=== PATIENT | male | born 1960 | race Caucasian/White ===

== ENCOUNTER 2018-05-31 00:46 | Outpatient (CLI) | payer MEDICARE, SELFPAY ==
--- NOTE | 2018-05-31 09:37 | DI.RAD_ITS ---
SYMPTOMS/DIAGNOSIS: LOW BACK PAIN, M54.5 LUMBAR SPINE: AP, lateral and bilateral oblique views. There is a mild left convex curvature of the thoracolumbar spine. The apex is at L1. There are five lumbar-type vertebral bodies. No spondylolysis or spondylolisthesis is seen. No acute fractures or subluxations are present. Disc heights are well maintained. There are endplate osteophytes seen in the lumbar spine, particularly at the L1- L2 level and L3-L4 through L5-S1. Degenerative changes of the facets are present from L3-4 through L5-S1. The bones are normally mineralized. IMPRESSION: Mild to moderate degenerative changes of the lumbar spine.
== END 2018-05-31 01:06 ==
PROVIDERS: PCP Family Medicine; Visit Provider Family Medicine
DX: M54.5 Low back pain (principal); M47.817 Spondylosis without myelopathy or radiculopathy, lumbosacral region
CPT/HCPCS: 72110

== ENCOUNTER 2018-09-17 16:39 | Emergency (ER) | payer MEDICARE, SELFPAY ==
[2018-09-17 16:54] VITALS: BP 126/65; PULSE 79; RESP 15; TEMP 36.8; O2SAT 95
--- NOTE | 2018-09-17 17:24 | DI.COMBO_ITS ---
SYMPTOM/DIAGNOSIS: TRAUMA, PAIN NONCONTRAST HEAD CT: Mild cerebral atrophy is demonstrated. There is no evidence of an intracerebral mass, fluid collection, edema or a territorial infarct. Ventricular prominence is noted and is consistent with mild diffuse cerebral atrophy. There is no skull fracture. Minimal partial right ethmoid sinusitis is demonstrated. There is no evidence of mastoiditis. Note is made of posterior scalp soft tissue swelling. SUMMARY: No acute intracranial abnormality is demonstrated. There is a region of soft tissue swelling over the posterior scalp with no evidence of a fracture. CERVICAL SPINE CT: The examination was carried out according to the usual protocol. There are degenerative changes involving the cervical spine which are of moderately severe degree. There is nothing to suggest a fracture, subluxation or dislocation. The neural canal is widely patent throughout. The odontoid is intact and is closely applied to the anterior arch of C 1. SUMMARY: DJD. No evidence of an acute fracture or dislocation or subluxation. LEFT CLAVICLE: There is no evidence of a clavicular fracture. Degenerative changes involving the AC joint are noted. There is no evidence of an AC separation.
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
--- NOTE | 2018-09-17 18:16 | DI.VRAD_ITS ---
EXAM: XR Left Clavicle Complete, 2 or More Views EXAM DATE/TIME: 09/17/2018 5:45 PM CLINICAL HISTORY: 57 years old, male; left shoulder pain TECHNIQUE: XR Left clavicle complete 2 or more views. COMPARISON: No relevant prior studies available. FINDINGS: Bones/joints: No acute fracture. No dislocation. No AC separation. Left AC joint degenerative change. Soft tissues: No soft tissue radiopaque foreign body or soft tissue calcification. IMPRESSION: 1. No acute fracture. 2. Left AC joint degenerative change. Dictated and Authenticated by: Lazaro He MD. Ordering:NU Ruiz MD
[2018-09-17] MEDS: Acetaminophen 500 MG TAB 1500 MG PO (18:47)
== END 2018-09-17 18:52 | disposition home or self-care (01) ==
PROVIDERS: Emergency Provider Physician Assistant; PCP Family Medicine
DX: S00.01XA Abrasion of scalp, initial encounter (principal); M54.2 Cervicalgia; M25.512 Pain in left shoulder; I10 Essential (primary) hypertension; E11.9 Type 2 diabetes mellitus without complications; Z79.4 Long term (current) use of insulin
CPT/HCPCS: 99284; 70450; 72125; 73000; L0120; L0172

== ENCOUNTER 2019-01-21 12:57 | Outpatient (REF) | payer MEDICARE, SELFPAY ==
[2019-01-21 19:15] LABS: Anion Gap 7.8 mmol/L (3-11); BUN 18 mg/dL (7-18); CO2 29.2 mmol/L (21.0-32.0); CREATININE 0.83 mg/dL (0.70-1.30); Chloride 101 mmol/L (98-107); Glucose 127 mg/dL (70-100); Potassium 4.3 mmol/L (3.5-5.1); Sodium 138 mmol/L (136-145)
[2019-01-23 09:58] LABS: Hepatitis C Ab w Rflx HCV PCR Negative (NEGAT)
== END 2019-01-21 13:17 ==
LOC: LBN 12:57
PROVIDERS: PCP Family Medicine; Visit Provider Family Medicine
DX: E11.9 Type 2 diabetes mellitus without complications (principal); Z11.59 Encounter for screening for other viral diseases
CPT/HCPCS: 80048; 86803

== ENCOUNTER 2020-02-03 11:14 | Outpatient (REF) | payer MEDICARE, SELFPAY ==
--- NOTE | 2020-02-03 13:45 | SKI_PTH ---
PATIENT: Jose Mcfadden III LOC: [facility] U#:[id number] AGE/SX: 59/M ROOM: RE02/03/[address]: Rod Geiger : 1960 BED: DIS: 02/03/2020 SPEC #: [id number] RECD: 02/04/20 11:58 STATUS: JAIDEN JEAN-BAPTISTE #: [id number] DEX: 02/03/20 13:[address]: Rod Geiger DEPT: Surgical Specimen RECD BY: Kita Sylvester Tissues: 1 - SKIN BIOPSY(SHAVE/PUNCH) Procedures: SKIN LEVEL 4 Comments: [id number]
== END 2020-02-03 11:34 ==
LOC: NCHCN 11:14
PROVIDERS: PCP Family Medicine; Visit Provider Family Medicine
DX: C44.622 Squamous cell carcinoma of skin of right upper limb, including shoulder (principal)
CPT/HCPCS: 88305

== ENCOUNTER 2020-07-26 15:01 | Outpatient (REF) | payer MEDICARE, SELFPAY ==
[2020-07-26 19:32] LABS: HCT 32.8 % (40.0-50.0); HGB 10.5 g/dL (13.5-17.5); MCH 27.6 pg (27.0-33.0); MCV 86.1 fL (80-95); MPV 11.5 fL (8.0-11.0); Platelet Count 222 10^3/uL (130-400); RBC 3.81 10^6/uL (4.36-5.78); RDW 14.8 % (11.8-14.1); WBC 7.95 10^3/uL (4.4-10.8)
[2020-07-26 19:45] LABS: Iron 54 ug/dL (65-175); Total Iron Binding Capacity 360 ug/dL (250-450); Transferrin Sat 15 % (20-55)
[2020-07-26 20:17] LABS: ALT 31 U/L (16-63); AST 30 U/L (15-37); Albumin 3.6 g/dL (3.4-5.0); Alkaline Phosphatase 52 U/L (46-116); Anion Gap 6.7 mmol/L (3-11); BUN 11 mg/dL (7-18); Bilirubin, Total 0.7 mg/dL (0.2-1.0); CO2 29.3 mmol/L (21.0-32.0); CREATININE 0.96 mg/dL (0.70-1.30); Calcium 9.2 mg/dL (8.5-10.1); Chloride 102 mmol/L (98-107); Glucose 153 mg/dL (74-106); Potassium 4.2 mmol/L (3.5-5.1); Sodium 138 mmol/L (136-145); Total Protein 6.6 g/dL (6.4-8.2); Vitamin B12 631 pg/mL (193-986)
== END 2020-07-26 15:21 ==
LOC: NCHCN 15:01
PROVIDERS: PCP Family Medicine; Visit Provider Family Medicine
DX: D64.9 Anemia, unspecified (principal); E11.9 Type 2 diabetes mellitus without complications; E66.9 Obesity, unspecified
CPT/HCPCS: 80053; 85027; 82607; 83540; 83550

== ENCOUNTER 2020-09-28 22:57 | Outpatient (REF) | payer OTHER, SELFPAY ==
[2020-09-28 22:05] LABS: Hemoglobin A1C 7.8 % (<5.7)
[2020-09-28 22:20] LABS: Anion Gap 9.6 mmol/L (3-11); BUN 11 mg/dL (7-18); CO2 28.4 mmol/L (21.0-32.0); Chloride 100 mmol/L (98-107); Glucose 156 mg/dL (74-106); Potassium 4.4 mmol/L (3.5-5.1); Sodium 138 mmol/L (136-145); TSH (W/Ref FT4) 0.77 uIU/mL (0.36-3.74)
== END 2020-09-28 22:58 | disposition home or self-care (01) ==
LOC: NCHCN 22:57
PROVIDERS: PCP Family Medicine; Visit Provider Family Medicine
DX: E11.65 Type 2 diabetes mellitus with hyperglycemia (principal); Z68.41 Body mass index [BMI] 40.0-44.9, adult
CPT/HCPCS: 80048; 83036; 84443

== ENCOUNTER 2021-04-06 20:33 | Outpatient (REF) | payer OTHER, SELFPAY ==
[2021-04-06 20:29] LABS: HCT 33.1 % (40.0-50.0); HGB 10.2 g/dL (13.5-17.5); MCH 27.6 pg (27.0-33.0); MCHC 30.8 % (32.0-36.0); MCV 89.5 fL (80-95); MPV 11.2 fL (8.0-11.0); Platelet Count 217 10^3/uL (130-400); RDW 14.9 % (11.8-14.1); RDW-SD 48.4 fL; WBC 7.41 10^3/uL (4.4-10.8)
[2021-04-06 20:46] LABS: Hemoglobin A1C 7.6 % (<5.7)
[2021-04-06 20:56] LABS: Anion Gap 9.5 mmol/L (3-11); BUN 15 mg/dL (7-18); CO2 28.5 mmol/L (21.0-32.0); CREATININE 0.8 mg/dL (0.70-1.30); Calcium 9.3 mg/dL (8.5-10.1); Calculated LDL 86 mg/dL (<100); Chloride 104 mmol/L (98-107); Cholesterol 162 mg/dL (<200); Glucose 110 mg/dL (74-106); HDL Cholesterol 33 mg/dL (40-60); Potassium 4.4 mmol/L (3.5-5.1); Sodium 142 mmol/L (136-145); Triglyceride 216 mg/dL (<150)
[2021-04-06 20:57] LABS: Iron 72 ug/dL (65-175); Total Iron Binding Capacity 368 ug/dL (250-450); Transferrin Sat 20 % (20-55)
== END 2021-04-06 20:34 | disposition home or self-care (01) ==
LOC: NCHCN 20:33
PROVIDERS: PCP Family Medicine; Visit Provider Family Medicine
DX: E11.9 Type 2 diabetes mellitus without complications (principal); D64.9 Anemia, unspecified
CPT/HCPCS: 80048; 80061; 85027; 83036; 83540; 83550

== ENCOUNTER 2021-09-07 19:48 | Outpatient (REF) | payer OTHER, SELFPAY ==
[2021-09-07 19:19] LABS: HCT 29.7 % (40.0-50.0); MCH 27.3 pg (27.0-33.0); MCHC 30.3 % (32.0-36.0); Platelet Count 196 10^3/uL (130-400); RDW 14.3 % (11.8-14.1); RDW-SD 46.9 fL; Reticulocyte 1.1 % (0.5-2.4); WBC 6.77 10^3/uL (4.4-10.8)
[2021-09-07 20:00] LABS: Hemoglobin A1C 7.6 % (<5.7)
== END 2021-09-07 19:49 | disposition home or self-care (01) ==
LOC: LBN 19:48
PROVIDERS: PCP Family Medicine; Visit Provider Family Medicine
DX: E11.9 Type 2 diabetes mellitus without complications (principal); D64.9 Anemia, unspecified
CPT/HCPCS: 85027; 83036; 85045

== ENCOUNTER 2022-02-09 03:48 | Outpatient (CLI) | payer MEDICARE, SELFPAY ==
[2022-02-09 11:18] LABS: Abs Immature Grans 0.05 10^3/uL (0.0-0.06); Absolute Basophil Count 0.04 10^3/uL (0.0-0.2); Absolute Eosinophil Count 0.15 10^3/uL (0.0-0.7); Absolute Lymphocyte Count 2.46 10^3/uL (1.2-3.4); Absolute Monocyte Count 0.56 10^3/uL (0.1-0.8); Absolute Neutrophil Count 3.43 10^3/uL (1.2-6.7); Basophils % 0.6; Eosinophils % 2.2; HCT 31.7 % (40.0-50.0); Immature Grans % 0.7; Lymphocytes % 36.8; MCH 26.7 pg (27.0-33.0); MCHC 31.5 % (32.0-36.0); MCV 85 fL (80-95); MPV 10.2 fL (8.0-11.0); Monocytes % 8.4; Neutrophils % 51.3; Platelet Count 183 10^3/uL (130-400); RBC 3.74 10^6/uL (4.36-5.78); RDW 15.4 % (11.8-14.1); RDW-SD 47.5 fL; WBC 6.69 10^3/uL (4.4-10.8)
[2022-02-09 11:23] LABS: Reticulocyte 1.2 % (0.5-2.4)
[2022-02-09 11:32] LABS: Iron 51 ug/dL (65-175); Total Iron Binding Capacity 379 ug/dL (250-450); Transferrin Sat 13 % (20-55)
[2022-02-09 11:42] LABS: Hemoglobin A1C 7.7 % (<5.7)
[2022-02-09 11:56] LABS: ALT 42 U/L (16-63); AST 22 U/L (15-37); Albumin 3.4 g/dL (3.4-5.0); Alkaline Phosphatase 69 U/L (46-116); BUN 14 mg/dL (7-18); Bilirubin, Total 0.9 mg/dL (0.2-1.0); Calcium 8.8 mg/dL (8.5-10.1); Chloride 101 mmol/L (98-107); Ferritin 43 ng/mL (26-388); Glucose 242 mg/dL (74-106); Potassium 4.2 mmol/L (3.5-5.1); Sodium 138 mmol/L (136-145); Total Protein 7.1 g/dL (6.4-8.2)
== END 2022-02-09 03:49 | disposition home or self-care (01) ==
PROVIDERS: Nurse Practitioner Family; PCP Family Medicine; Visit Provider Internal Medicine Endocrinology, Diabetes & Metabolism
DX: D64.9 Anemia, unspecified (principal); E11.65 Type 2 diabetes mellitus with hyperglycemia
CPT/HCPCS: 36415; 80053; 85045; 82728; 83036; 83540; 83550; 85025

== ENCOUNTER → 2022-03-20 01:35 | Outpatient (CLI) | payer MEDICARE, SELFPAY | PROVIDERS: PCP Family Medicine; Visit Provider Family Medicine ==

== ENCOUNTER → 2022-03-23 01:36 | Outpatient (CLI) | payer MEDICARE, SELFPAY ==
--- NOTE | 2022-03-23 09:50 | NUR.NOTE ---
Nursing Note: Regular stress test cancelled this am per Dr Hogan due to pt found to be in Atrial flutter. Hr's low 100's to 115 bpm at rest and BP 122/68, pt asymptomatic. Pt does report feeling increasingly tired and SOB recently. Pt informed that we will update Dr Geiger (pt's PCP) regarding new finding of Atrial flutter and request that pt be seen in his PCP's office today if possible. Message left with Dr Geiger's triage nurse this am
== END ==
PROVIDERS: PCP Family Medicine; Visit Provider Family Medicine

== ENCOUNTER 2022-06-15 11:03 | Outpatient (CLI) | payer MEDICARE, SELFPAY ==
[2022-06-15 11:02] LABS: Abs Immature Grans 0.02 10^3/uL (0.0-0.06); Absolute Basophil Count 0.03 10^3/uL (0.0-0.2); Absolute Eosinophil Count 0.12 10^3/uL (0.0-0.7); Absolute Lymphocyte Count 1.66 10^3/uL (1.2-3.4); Absolute Neutrophil Count 3.81 10^3/uL (1.2-6.7); Basophils % 0.5; HGB 10.6 g/dL (13.5-17.5); Immature Grans % 0.3; MCH 27.1 pg (27.0-33.0); MCHC 31.2 % (32.0-36.0); MCV 87 fL (80-95); MPV 10.3 fL (8.0-11.0); Monocytes % 8.1; Neutrophils % 62.1; Platelet Count 196 10^3/uL (130-400); RBC 3.91 10^6/uL (4.36-5.78); RDW 14.6 % (11.8-14.1); RDW-SD 46.5 fL; WBC 6.14 10^3/uL (4.4-10.8)
[2022-06-15 11:21] LABS: Anion Gap 9.6 mmol/L (3-11); BUN 10 mg/dL (7-18); CO2 29.4 mmol/L (21.0-32.0); CREATININE 0.8 mg/dL (0.70-1.30); Calcium 9.1 mg/dL (8.5-10.1); Chloride 101 mmol/L (98-107); Estimated GFR 101.32 (mL/min/1.73m2); Glucose 161 mg/dL (74-106); Potassium 3.7 mmol/L (3.5-5.1); Sodium 140 mmol/L (136-145)
[2022-06-15 11:33] LABS: Ferritin 27 ng/mL (26-388)
== END 2022-06-15 11:04 | disposition home or self-care (01) ==
LOC: LBO 11:04
PROVIDERS: Internal Medicine Hematology & Oncology; PCP Family Medicine; Visit Provider Internal Medicine Endocrinology, Diabetes & Metabolism
DX: D64.9 Anemia, unspecified (principal); E11.65 Type 2 diabetes mellitus with hyperglycemia
CPT/HCPCS: 36415; 80048; 82728; 83036; 85025

== ENCOUNTER 2022-08-23 02:38 | Outpatient (CLI) | payer MEDICARE, SELFPAY ==
[2022-08-23 08:28] LABS: Abs Immature Grans 0.04 10^3/uL (0.0-0.06); Absolute Basophil Count 0.04 10^3/uL (0.0-0.2); Absolute Eosinophil Count 0.13 10^3/uL (0.0-0.7); Absolute Lymphocyte Count 2.48 10^3/uL (1.2-3.4); Absolute Monocyte Count 0.67 10^3/uL (0.1-0.8); Absolute Neutrophil Count 4.24 10^3/uL (1.2-6.7); Basophils % 0.5; Eosinophils % 1.7; HGB 11.2 g/dL (13.5-17.5); Immature Grans % 0.5; Lymphocytes % 32.6; MCH 27.9 pg (27.0-33.0); MCV 87 fL (80-95); MPV 10.8 fL (8.0-11.0); Monocytes % 8.8; Neutrophils % 55.9; Platelet Count 181 10^3/uL (130-400); RBC 4.02 10^6/uL (4.36-5.78); RDW 15.3 % (11.8-14.1); RDW-SD 48.8 fL
[2022-08-23 08:39] LABS: Hemoglobin A1C 7.7 % (<5.7)
[2022-08-23 08:56] LABS: ALT 26 U/L (16-63); AST 28 U/L (15-37); Albumin 3.3 g/dL (3.4-5.0); Alkaline Phosphatase 79 U/L (46-116); Anion Gap 6.5 mmol/L (3-11); BUN 16 mg/dL (7-18); Bilirubin, Total 0.6 mg/dL (0.2-1.0); CO2 31.5 mmol/L (21.0-32.0); CREATININE 0.9 mg/dL (0.70-1.30); Calcium 9.1 mg/dL (8.5-10.1); Chloride 100 mmol/L (98-107); Estimated GFR 97.78 (mL/min/1.73m2); Ferritin 100 ng/mL (26-388); Glucose 208 mg/dL (74-106); Potassium 4.3 mmol/L (3.5-5.1); Sodium 138 mmol/L (136-145); Total Protein 6.9 g/dL (6.4-8.2)
== END 2022-08-23 02:39 | disposition home or self-care (01) ==
LOC: LBO 02:38
PROVIDERS: PCP Family Medicine; Visit Provider Internal Medicine Hematology & Oncology
DX: E11.65 Type 2 diabetes mellitus with hyperglycemia (principal); D64.9 Anemia, unspecified
CPT/HCPCS: 36415; 80053; 82728; 83036; 85025

== ENCOUNTER 2022-09-21 00:49 | Outpatient (CLI) | payer MEDICARE, SELFPAY ==
--- NOTE | 2022-09-21 | ETT_ITS ---
APPROVED REPORT Exam: Exercise Treadmill Patient Location: Out-Patient Room/Bed: Stress Nurse: Eufemia Haskins RN Ordering Provider:JANET MORILLO, Contact Number: [phone] BMI: 53.29 Baseline Rhythm: Atrial Fibrillation Comment: PVC's Indications: Increased dyspnea on exertion, recent onset A Fib Medical History Medical History: DM, Afib, Recurrent cellulitis, HTN, HLD, sleep apnea, morbid obesity Cardiac Medications: simvostatin, Omeprazole, Miglitol, Metformin, Lisinopril-HCTZ, labetolol, famoti dine, aspirin, victoza, humulin insulin, eliquis Allergies: NKDA Cardiac Risk Factors: +HTN, +HLD, +Diabetes, +obesity, former smoker Previous Cardiac Procedures: None Pretest Chest Pain Characteristics: None Exercise History: Sedentary Physical Disabilities: back pain, lower extremity recurrent cellulitis Lung Sounds: Clear upper lobes Heart Sounds: Irregular Stress Test Details Test: Exercise stress testing was performed using a Miguelito protocol. Rest Stress HR Resting HR Supine: 83 bpm Max Heart Rate (APMHR): 160 bpm Resting HR Standin bpm Target HR (85% APMHR): 136 bpm Max HR Achieved: 169 bpm % of APMHR: 106 Recovery HR: 93 bpm HR response to stress: Accelerated HR response to stress BP Resting BP Supine: 124/64 mmHg Resting BP Standin/68 mmHg Max BP: 160/78 mmHg Recovery BP: 128/68 mmHg BP response to stress: Normal blood pressure response to stress. ECG Resting ECG: Atrial Fibrillation Ectopy: PVC's Stress ECG: Atrial Fibrillation ST Change: No significant ST segment changes noted Arrhythmia: PVC's Recovery ECG: Atrial Fibrillation Recovery ST Change: No significant ST segment changes noted Recovery Arrhythmia: PVC's Clinical Reason for Termination: Fatigue Stress Symptoms: General Fatigue Exercise duration: min58 sec Highest Stage Reached: Stage 1: 1.7 mph at 10% grade. Exercise capacity: 2.23 METs Angina Score: None Ibarra Treadmill Score: 0.9 Rate Pressure Product: 20664 Stress ECG Conclusion 1. Resting electrocardiogram showed right axis deviation, poor R wave progression, atrial fibrillatio n 2. Heart rate was elevated at rest. 3. Patient exercised on the Miguelito protocol and completed a workload of 2.23 METS, stopping due to fat igue 4. Accelerated heart rate response to exercise. Patient achieved greater than 100% of predicted hear t rate for age 5. Echocardiographic portion of the test did not demonstrate any myocardial ischemia 6. Atrial fibrillation was present throughout, sporadic premature ventricular contractions Ibarra Treadmill Score is 0.9 which is Moderate risk. Stress Test Summary STAGE Time (mins) Speed (mph) Grade (%) HR BP SpO2 SYMPTOMS METS Supine 83 124/64 Standing 124 118/68 1 3 1.7 10 162 4.5 1 min recovery 141 138/60 3 min recovery 118 160/78 6 min recovery 93 128/68
== END 2022-09-21 01:09 ==
PROVIDERS: PCP Family Medicine; Visit Provider Family Medicine
DX: R06.09 Other forms of dyspnea (principal)
CPT/HCPCS: 93016; 93018; 93017

== ENCOUNTER 2022-11-16 04:14 | Outpatient (CLI) | payer MEDICARE, SELFPAY ==
[2022-11-16 10:42] LABS: Abs Immature Grans 0.05 10^3/uL (0.0-0.06); Absolute Basophil Count 0.04 10^3/uL (0.0-0.2); Absolute Eosinophil Count 0.15 10^3/uL (0.0-0.7); Absolute Lymphocyte Count 2.82 10^3/uL (1.2-3.4); Absolute Monocyte Count 0.82 10^3/uL (0.1-0.8); Absolute Neutrophil Count 3.43 10^3/uL (1.2-6.7); Basophils % 0.5; Eosinophils % 2.1; HCT 34.4 % (40.0-50.0); HGB 10.6 g/dL (13.5-17.5); Immature Grans % 0.7; Lymphocytes % 38.6; MCH 27.4 pg (27.0-33.0); MCHC 30.8 % (32.0-36.0); MCV 89 fL (80-95); MPV 10.1 fL (8.0-11.0); Monocytes % 11.2; Neutrophils % 46.9; Platelet Count 192 10^3/uL (130-400); RBC 3.87 10^6/uL (4.36-5.78); RDW 15.2 % (11.8-14.1); RDW-SD 49.1 fL; WBC 7.31 10^3/uL (4.4-10.8)
[2022-11-16 10:52] LABS: Anion Gap 8.3 mmol/L (3-11); BUN 15 mg/dL (7-18); CO2 29.7 mmol/L (21.0-32.0); CREATININE 0.9 mg/dL (0.70-1.30); Chloride 101 mmol/L (98-107); Estimated GFR 97.78 (mL/min/1.73m2); Glucose 114 mg/dL (74-106); Potassium 4.5 mmol/L (3.5-5.1); Sodium 139 mmol/L (136-145)
[2022-11-16 10:57] LABS: Hemoglobin A1C 7.4 % (<5.7)
[2022-11-16 11:08] LABS: Ferritin 77 ng/mL (26-388)
[2022-11-17 17:16] LABS: C-Peptide 1.6 ng/mL (1.1 - 4.4)
== END 2022-11-16 04:15 | disposition home or self-care (01) ==
PROVIDERS: Internal Medicine Endocrinology, Diabetes & Metabolism; PCP Family Medicine; Visit Provider Internal Medicine Hematology & Oncology
DX: D64.9 Anemia, unspecified (principal); E11.65 Type 2 diabetes mellitus with hyperglycemia
CPT/HCPCS: 36415; 80048; 82728; 83036; 84681; 85025

== ENCOUNTER 2022-12-07 07:52 | Emergency (ER) | payer MEDICARE, SELFPAY ==
--- NOTE | 2022-12-07 09:02 | ED.GENADUL_ITS ---
Discharge Plan Disposition Patient Disposition: Home Condition: Stable Discharge Details Clinical Impression: Bone spur of left foot, Open wound of left thigh Primary Care Provider: Rod Geiger ED Provider: Farrah Mccurdy Home Meds and New Rx's Prescriptions: New cephalexin 500 mg tablet 500 mg PO BID 7 Days Qty: 14 0RF Rx Instructions: Take 1 tablet by mouth twice daily for the next 7 days Continued metformin 500 MG tablet 1,000 mg PO BID Humulin R U-500 (Conc) Insulin 500 UNIT/1 ML solution 190 u SQ . BEFORE BREAKFAST simvastatin 40 MG tablet 40 mg PO HS lisinopril-hydrochlorothiazide 1 EACH tablet 1 tab-cap PO DAILY calcium carb and citrate-vitD3 1 EACH tablet extended release 1 ea PO DAILY Oxygen EACH Qty: 2 bipap miglitol [Glyset] 100 MG tablet 100 mg PO TID labetalol 200 MG tablet 400 mg PO BID famotidine 40 MG tablet 40 mg PO DAILY aluminum chloride [Drysol Dab-O-Matic] 60 ML solution 0 ml Topical BID aspirin [Aspir-81] 81 MG tablet,delayed release (DR/EC) 81 mg PO DAILY Humulin R U-500 (Conc) Insulin 500 UNIT/ML solution 50 unit SQ HS Patient Comments: 10/02/13 uses a sliding scale MPrn ketoconazole 15 GM cream 0 gm Topical PRN PRN cholecalciferol (vitamin D3) 1,000 UNIT capsule 0.5 cap PO DAILY Oxygen 2 % .WITH BIPAP Humulin R U-500 (Conc) Insulin 500 UNIT/ML solution 190 unit SQ .BEFORE DINNER acetaminophen 325 mg Tablet 650 mg PO Q6H PRN ketoconazole 2 % Shampoo 1 applic TOPICAL Q2W PRN triamcinolone acetonide 0.5 % Cream 1 applic TOPICAL BID omeprazole 40 mg Capsule,Delayed Release(Dr/Ec) 40 mg PO BID docusate sodium [Doc-Q-Lace] 100 mg Capsule 200 mg PO DAILY nystatin 100,000 unit/gram Powder 1 applic TOPICAL TID cyclobenzaprine 5 mg Tablet 1 - 2 tab PO HS psyllium husk [Metamucil] 0.52 gram Capsule 0.52 g PO DAILY Calcium 600 + D(3) 600 mg calcium- 200 unit Capsule 1 tab PO DAILY multivit, iron, min. cmb. 5-FA 10-1 mg Tablet 1 tab PO DAILY Victoza 2-Jose 0.6 mg/0.1 mL (18 mg/3 mL) Pen Injector 0.6 mg SUBCUT DAILY acetaminophen [Tylenol Extra Strength] 500 mg tablet 500 mg PO Q6H PRN (Reason: pain) Qty: 20 0RF Discharge Instructions Instructions: Cellulitis (ED) Additional Instructions: The x-ray of your foot shows some bone spurring or overgrowth of bone at the base of your little toe. This may be what is causing your pain. Wear the walking boot as needed for comfort. Rest, ice compression elevation. I do suspect that you may have a small soft tissue infection around the wound to your left anterior thigh. A dressing was placed on that area. Keep it clean and dry. Please take the antibiotic twice daily with yogurt or a probiotic as directed. The swelling in your legs may be due to increased fluid, please discuss with your primary care provider about increasing the dose of your hydrochlorothiazide. Follow up with primary care provider in 3-5 days. Return to ED sooner if any worsening or concerns. Increase oral fluids. Referrals: Rod Geiger [Primary Care Provider] - 3 days Medical Decision Making Downtime procedures, see paper chart Labs showed an elevated BNP of 1299, no white blood cell count CMP largely within normal limits, magnesium slightly low at 1.7. Patient was given 250 cc an hour fluids for lactate of 2.4. We will give patient antibiotic for possible wound infection due to diabetic status. Will instruct patient follow-up with PCP regarding edema to lower extremities. This could be CHF exacerbation. Patient has no chest pain or shortness of breath. Lungs are clear to auscultation bilaterally. Will place patient in a walking boot [facility] General Date/Time Provider Initiated Documentation: 12/07/22 08:52 . Related Data Home Medications Medication Instructions Recorded Confirmed Oxygen 2 % .WITH BIPAP 10/02/13 09/17/18 aluminum chloride 20 % topical 0 ml topical BID 10/02/13 09/17/18 solution (Drysol Dab-O-Matic) aspirin 81 mg tablet,delayed 81 mg PO DAILY 10/02/13 09/17/18 release (Aspir-) cholecalciferol (vitamin D3) 25 0.5 cap PO DAILY 10/02/13 09/17/18 mcg (1,000 unit) capsule famotidine 40 mg tablet 40 mg PO DAILY 10/02/13 09/17/18 insulin regular hum U-500 conc 500 50 unit SQ HS 10/02/13 09/17/18 unit/mL subcutaneous soln (Humulin R U-500 (Concentrated) Insulin) ketoconazole 2 % topical cream 0 gm topical PRN PRN 10/02/13 09/17/18 labetalol 200 mg tablet 400 mg PO BID 10/02/13 09/17/18 miglitol 100 mg tablet (Glyset) 100 mg PO TID 10/02/13 09/17/18 Bipap 10/26/16 Oxygen l ##2 10/26/16 calcium carb,cit ER 600 mg-vit D3 1 ea PO DAILY 10/26/16 09/17/18 12.5 mcg (500 unit) tablet,ext.rel insulin regular hum U-500 conc 500 190 u SQ . BEFORE BREAKFAST 10/26/16 09/17/18 unit/mL subcutaneous soln (Humulin R U-500 (Concentrated) Insulin) lisinopril 20 1 tab-cap PO DAILY 10/26/16 09/17/18 mg-hydrochlorothiazide 25 mg tablet metformin 500 mg tablet 1,000 mg PO BID 10/26/16 09/17/18 simvastatin 40 mg tablet 40 mg PO HS 10/26/16 09/17/18 insulin regular hum U-500 conc 500 190 unit SQ .BEFORE DINNER 11/06/16 09/17/18 unit/mL subcutaneous soln (Humulin R U-500 (Concentrated) Insulin) acetaminophen 325 mg tablet 650 mg PO Q6H PRN 09/17/18 09/17/18 acetaminophen 500 mg tablet 500 mg PO Q6H PRN pain #20 tabs 09/17/18 (Tylenol Extra Strength) calcium carbonate 600 mg-vitamin 1 tab PO DAILY 09/17/18 09/17/18 D3 5 mcg (200 unit) capsule (Calcium 600 + D(3)) cyclobenzaprine 5 mg tablet 1 - 2 tab PO HS 09/17/18 09/17/18 docusate sodium 100 mg capsule 200 mg PO DAILY 09/17/18 09/17/18 (Doc-Q-Lace) ketoconazole 2 % shampoo 1 applic topical Q2W PRN 09/17/18 09/17/18 liraglutide 0.6 mg/0.1 mL (18 mg/3 0.6 mg subcut DAILY 09/17/18 09/17/18 mL) subcutaneous pen injector ([employer] Powerza 2-Jose) multivit, iron, min. comb. 1 tab PO DAILY 09/17/18 09/17/18 no.5-folic acid 10 mg-1 mg tablet nystatin 100,000 unit/gram topical 1 applic topical TID 09/17/18 09/17/18 powder omeprazole 40 mg capsule,delayed 40 mg PO BID 09/17/18 09/17/18 release psyllium husk 0.52 gram capsule 0.52 g PO DAILY 09/17/18 09/17/18 (Metamucil) triamcinolone acetonide 0.5 % 1 applic topical BID 09/17/18 09/17/18 topical cream cephalexin 500 mg tablet 500 mg PO BID cellulitis 7 days 12/07/22 #14 tabs Previous Rx's Medication Instructions Recorded acetaminophen 500 mg tablet 500 mg PO Q6H PRN pain #20 tabs 09/17/18 (Tylenol Extra Strength) cephalexin 500 mg tablet 500 mg PO BID cellulitis 7 days 12/07/22 #14 tabs Allergies Allergy/AdvReac Type Severity Reaction Status Date / Time goldenrods Allergy unknown Uncoded 10/02/13 16:14 General Stated Complaint: Vascular JUVENAL: 3 PFSH All Active Problems (Updated 12/07/22 @ 10:19 by Farrah Mccurdy NP) Bone spur of left foot (Acute) Open wound of left thigh (Acute) Social History Smoking/Tobacco Use Status: Former Tobacco Use Smoking risk assessment performed?: Yes Drug use: Never Do you feel safe at home: Yes Do you feel safe in your relationship?: Yes
[2022-12-07] MEDS: Normal Saline 1,000 ML 250 ML IV (09:05)
--- NOTE | 2022-12-07 09:15 | DI.US_ITS ---
Exam(s) US LOWER EXTREMITY VENOUS LT EXAM: US LOWER EXTREMITY VENOUS LT CLINICAL HISTORY: Swelling, pain. TECHNIQUE: Lower extremity venous ultrasound performed using grayscale, color-flow, and spectral Do ppler analysis. COMPARISON: No exams were available for comparison FINDINGS: The common femoral, femoral and popliteal veins demonstrate normal compressibility, augmentation, and color Doppler. The posterior tibial veins are patent. No saphenous vein thrombosis or other superfi cial venous thrombosis is seen. No hematoma or Daley's cyst is seen. Subcutaneous edema noted. IMPRESSION: Lower leg edema.. No evidence of DVT. DATA REPOSITORY:
--- NOTE | 2022-12-07 09:15 | DI.RAD_ITS ---
Exam(s) XR FOOT LT COMPLETE EXAM: XR FOOT LT COMPLETE CLINICAL HISTORY: Foot pain. TECHNIQUE: 2D digital imaging was performed. Three views. COMPARISON: No exams were available for comparison FINDINGS: BONES: No acute fracture is present. Prominent spurring at base 5th metatarsal. No bony destructive lesion is seen. Heel spurs. JOINTS: No dislocation present. Degenerative changes at the bases and metatarsals. Degenerative ch anges 1st MTP joint. SOFT TISSUE: Marked swelling. Plantar fascial calcification. IMPRESSION: Soft tissue swelling. No destructive bony lesion or fracture. DATA REPOSITORY: RADIATION DOSE DELIVERED:
--- NOTE | 2022-12-07 09:34 | NUR.NOTE ---
Nursing Note: 2.5x2.7 wound to posterior left thigh wound bed 25% black 25% yellow 50% red base
[2022-12-07 09:59] LABS: Lactate 2.4 mmol/L (0.6-1.4)
[2022-12-07 10:00] LABS: ALT 19 U/L (16-63); AST 25 U/L (15-37); Alkaline Phosphatase 73 U/L (46-116); Anion Gap 6.7 mmol/L (3-11); BUN 16 mg/dL (7-18); Bilirubin, Total 0.8 mg/dL (0.2-1.0); CO2 29.3 mmol/L (21.0-32.0); Calcium 8.7 mg/dL (8.5-10.1); Chloride 102 mmol/L (98-107); Estimated GFR 85.63 (mL/min/1.73m2); Glucose 192 mg/dL (74-106); Magnesium 1.7 mg/dL (1.8-2.4); NT-proBNP 1299 pg/mL (<300); Potassium 4.4 mmol/L (3.5-5.1); Sodium 138 mmol/L (136-145)
--- NOTE | 2022-12-07 10:09 | NUR.NOTE ---
Nursing Note: Report received from Aysha LOZANO
[2022-12-07] MEDS: Cephalexin 500 MG CAP PO (10:51)
[2022-12-07 11:00] VITALS: BP 113/68; PULSE 80; RESP 18; O2SAT 95
[2022-12-07 11:09] LABS: Abs Immature Grans 0.03 10^3/uL (0.0-0.06); Absolute Basophil Count 0.05 10^3/uL (0.0-0.2); Absolute Eosinophil Count 0.15 10^3/uL (0.0-0.7); Absolute Lymphocyte Count 1.99 10^3/uL (1.2-3.4); Basophils % 0.7; Eosinophils % 2.2; HGB 10.1 g/dL (13.5-17.5); Immature Grans % 0.4; Lymphocytes % 29.2; MCH 27.1 pg (27.0-33.0); MCHC 30.6 % (32.0-36.0); MCV 89 fL (80-95); Monocytes % 8.8; Neutrophils % 58.7; Platelet Count 210 10^3/uL (130-400); RBC 3.73 10^6/uL (4.36-5.78); RDW 15.4 % (11.8-14.1); RDW-SD 50.4 fL; WBC 6.82 10^3/uL (4.4-10.8)
--- NOTE | 2022-12-11 09:36 | NUR.NOTE ---
Nursing Note: Patient called stating that he does not have a car to [place] pick[place] his prescription. I called the prescription in to [facility] and they will deliver it to him today. Sara Muñiz, aware.
== END 2022-12-07 11:15 | disposition home or self-care (01) ==
PROVIDERS: Emergency Provider Registered Nurse Emergency; PCP Family Medicine
DX: M79.605 Pain in left leg (principal); R22.42 Localized swelling, mass and lump, left lower limb; E10.9 Type 1 diabetes mellitus without complications; I48.91 Unspecified atrial fibrillation; S71.102A Unspecified open wound, left thigh, initial encounter; M77.52 Other enthesopathy of left foot and ankle
CPT/HCPCS: 29515; 36415; 80053; 96360; 96361; 99284; 73630; 83605; 83735; 83880; 85025; 93971

== ENCOUNTER 2022-12-18 14:00 | Outpatient (REF) | payer MEDICARE, SELFPAY ==
[2022-12-18 14:56] LABS: Anion Gap 7.5 mmol/L (3-11); BUN 15 mg/dL (7-18); CO2 30.5 mmol/L (21.0-32.0); CREATININE 0.9 mg/dL (0.70-1.30); Calcium 8.9 mg/dL (8.5-10.1); Chloride 102 mmol/L (98-107); Estimated GFR 97.17 (mL/min/1.73m2); Glucose 150 mg/dL (74-106); Magnesium 1.9 mg/dL (1.8-2.4); Potassium 4.3 mmol/L (3.5-5.1); Sodium 140 mmol/L (136-145)
== END 2022-12-18 14:01 | disposition home or self-care (01) ==
LOC: NCHCN 14:00
PROVIDERS: PCP Family Medicine; Visit Provider Family Medicine
DX: R06.09 Other forms of dyspnea (principal)
CPT/HCPCS: 80048; 83735

== ENCOUNTER 2023-02-22 04:06 | Outpatient (CLI) | payer MEDICARE, SELFPAY ==
[2023-02-22 13:01] LABS: Abs Immature Grans 0.03 10^3/uL (0.0-0.06); Absolute Basophil Count 0.03 10^3/uL (0.0-0.2); Absolute Eosinophil Count 0.14 10^3/uL (0.0-0.7); Absolute Lymphocyte Count 1.95 10^3/uL (1.2-3.4); Absolute Monocyte Count 0.45 10^3/uL (0.1-0.8); Basophils % 0.4; Eosinophils % 1.9; HCT 35.2 % (40.0-50.0); Immature Grans % 0.4; Lymphocytes % 26.4; MCH 26.3 pg (27.0-33.0); MCHC 31.3 % (32.0-36.0); MCV 84 fL (80-95); MPV 9.9 fL (8.0-11.0); Monocytes % 6.1; Neutrophils % 64.8; Platelet Count 190 10^3/uL (130-400); RBC 4.18 10^6/uL (4.36-5.78); RDW 15.7 % (11.8-14.1); RDW-SD 47.4 fL
[2023-02-22 13:12] LABS: Hemoglobin A1C 6.2 % (<5.7)
[2023-02-22 13:37] LABS: ALT 16 U/L (16-63); AST 14 U/L (15-37); Albumin 3.3 g/dL (3.4-5.0); Alkaline Phosphatase 66 U/L (46-116); Anion Gap 9.3 mmol/L (3-11); BUN 15 mg/dL (7-18); CO2 28.7 mmol/L (21.0-32.0); CREATININE 0.9 mg/dL (0.70-1.30); Chloride 103 mmol/L (98-107); Estimated GFR 97.17 (mL/min/1.73m2); Ferritin 57 ng/mL (26-388); Glucose 144 mg/dL (74-106); Potassium 3.9 mmol/L (3.5-5.1); Sodium 141 mmol/L (136-145); Total Protein 7.4 g/dL (6.4-8.2)
[2023-02-23 18:00] LABS: Erythropoietin 27.4 mIU/mL (2.6 - 18.5)
== END 2023-02-22 04:07 | disposition home or self-care (01) ==
LOC: LBO 04:06
PROVIDERS: PCP Family Medicine; Visit Provider Internal Medicine Hematology & Oncology
DX: E11.65 Type 2 diabetes mellitus with hyperglycemia (principal); D50.0 Iron deficiency anemia secondary to blood loss (chronic)
CPT/HCPCS: 36415; 80053; 82668; 82728; 83036; 84681; 85025

== ENCOUNTER 2023-03-26 09:43 | Outpatient (REF) | payer MEDICARE, MEDICAID, SELFPAY ==
[2023-03-28 14:21] LABS: C-Peptide 4.9 ng/mL (1.1 - 4.4)
== END 2023-03-26 09:44 | disposition home or self-care (01) ==
LOC: NCHCN 09:43
PROVIDERS: PCP Family Medicine; Visit Provider Family Medicine
DX: E11.9 Type 2 diabetes mellitus without complications (principal)
CPT/HCPCS: 84681

== ENCOUNTER 2023-03-29 03:09 | Outpatient (CLI) | payer MEDICARE, MEDICAID, SELFPAY ==
--- NOTE | 2023-03-29 | DI.US_ITS ---
APPROVED REPORT EXAM: Comprehensive 2D, Doppler, and color-flow Echocardiogram Patient Location: Out-Patient Client Relationship Executive: Mirna Pal RDCS (AE) Indications: FONSECA. EDEMA Other Information Study Quality: Adequate. Technically limited study due to body habitus. Conclusion Technically difficult but adequate study Normal left ventricular wall thickness and chamber size. Measured EF is 53%. Visually EF appears 55 to 60% with normal wall motion Normal right ventricular size and systolic function Both atria are normal in size There is no structural or hemodynamically significant valvular disease Right ventricular systolic pressure could not be estimated Wall motion Left Ventricle The left ventricle is normal size. The overall left ventricular systolic function appears low normal. There is normal left ventricular wall thickness. There is normal LV segmental wall motion. There is no ventricular septal defect visualized. LVEF is 53%. Right Ventricle Right ventricle is grossly normal in size. Right ventricular systolic function is grossly normal. Atria The left atrium size is normal. The right atrium size is normal. The interatrial septum is intact wit h no evidence for an atrial septal defect. Aortic Valve The aortic valve is normal in structure. There is no aortic valvular stenosis. No aortic regurgitatio n is present. Mitral Valve The mitral valve is normal in structure. No evidence of mitral valve stenosis. Trace mitral regurgita tion. Tricuspid Valve The tricuspid valve is normal in structure. There is no tricuspid valve stenosis. Trace tricuspid reg urgitation. Unable to assess PA pressure. Pulmonic Valve Pulmonic valve is not well visualized. There is no pulmonic valvular stenosis. There is no pulmonic v alvular regurgitation. Great Vessels The aortic root is normal in size. Ascending aorta is not well visualized. Aortic arch is not well vi sualized. The IVC collapses <50% with inspiration. Pericardium There is no pericardial effusion. 2D Dimensions IVSD d PLAX 0.91 cm M: 0.6-1.2 LVPW d PLAX 1.03 cm M: 0.6 - 1.2 LVID d PLAX 5.38 cm M: 4.2 - 5.8 LVDs 3.85 cm M: 2.5 - 4.0 Ao Root d 3.63 cm M: 3.1 - 3.7 LV EF Teichholz 52.9 % FS 27.45 % Aortic Valve LVOT Vmax 1.16 m/s LVOT Peak Grad 5.4 mmHg LVOT Mean Grad 2.7 mmHg LVOT Diam s 2.05 cm AoV Peak Grad 9.7 mmHg LVOT SV 71.02 mL AoV Mean Grad 5.1 mmHg AoV Area VTI 2.23 cm2 Mitral Valve MV Mean Grad 2.6 (<2mmHg) MV Area PHT 2.65 cm2 Pulmonary Valve PV Mean Grad 3.8 mmHg RVOT Peak Gr. 3.35 mmHg RVOT Mean Gr. 1.70 mmHg RVOT VTI 0.172 m RVOT Vmax 0.91 m/s Tricuspid Valve RA Pressure 8.00 mmHg
== END 2023-03-29 03:29 ==
PROVIDERS: PCP Family Medicine; Visit Provider Family Medicine
DX: R06.09 Other forms of dyspnea (principal)
CPT/HCPCS: 93306

== ENCOUNTER 2023-06-15 18:38 | Outpatient (REF) | payer MEDICARE, MEDICAID, SELFPAY ==
[2023-06-15 17:24] LABS: Hemoglobin A1C 6.5 % (<5.7)
[2023-06-15 17:59] LABS: Anion Gap 7.5 mmol/L (3-11); BUN 14 mg/dL (7-18); CO2 31.5 mmol/L (21.0-32.0); CREATININE 0.8 mg/dL (0.70-1.30); Chloride 102 mmol/L (98-107); Estimated GFR 100.69 (mL/min/1.73m2); Glucose 112 mg/dL (74-106); Potassium 4.5 mmol/L (3.5-5.1); Sodium 141 mmol/L (136-145)
[2023-06-18 17:17] LABS: C-Peptide 2.1 ng/mL (1.1 - 4.4)
== END 2023-06-15 18:39 | disposition home or self-care (01) ==
LOC: LBN 18:38
PROVIDERS: PCP Family Medicine; Visit Provider Internal Medicine Endocrinology, Diabetes & Metabolism
DX: E11.65 Type 2 diabetes mellitus with hyperglycemia (principal)
CPT/HCPCS: 80048; 83036; 84681

== ENCOUNTER 2023-09-13 14:39 | Outpatient (CLI) | payer MEDICARE, MEDICAID, SELFPAY ==
[2023-09-13 13:31] LABS: Abs Immature Grans 0.04 10^3/uL (0.0-0.06); Absolute Basophil Count 0.04 10^3/uL (0.0-0.2); Absolute Eosinophil Count 0.27 10^3/uL (0.0-0.7); Absolute Lymphocyte Count 1.99 10^3/uL (1.2-3.4); Absolute Monocyte Count 0.48 10^3/uL (0.1-0.8); Basophils % 0.5; Eosinophils % 3.7; HCT 34.4 % (40.0-50.0); HGB 10.6 g/dL (13.5-17.5); Immature Grans % 0.5; Lymphocytes % 27.2; MCH 26.4 pg (27.0-33.0); MCHC 30.8 % (32.0-36.0); MCV 86 fL (80-95); Monocytes % 6.6; Neutrophils % 61.5; Platelet Count 196 10^3/uL (130-400); RBC 4.01 10^6/uL (4.36-5.78); RDW 16.2 % (11.8-14.1); RDW-SD 50.7 fL; WBC 7.32 10^3/uL (4.4-10.8)
[2023-09-13 13:57] LABS: Ferritin 31 ng/mL (26-388)
== END 2023-09-13 14:40 | disposition home or self-care (01) ==
LOC: LBO 14:42
PROVIDERS: PCP Family Medicine; Visit Provider Internal Medicine Hematology & Oncology
DX: D50.0 Iron deficiency anemia secondary to blood loss (chronic) (principal)
CPT/HCPCS: 36415; 82728; 85025

== ENCOUNTER 2023-11-01 16:44 | Outpatient (REF) | payer MEDICARE, MEDICAID, SELFPAY ==
[2023-11-01 18:45] LABS: HGB 11.6 g/dL (13.5-17.5); MCHC 31.4 % (32.0-36.0); MCV 86 fL (80-95); MPV 11.2 fL (8.0-11.0); Platelet Count 201 10^3/uL (130-400); RDW 16.5 % (11.8-14.1); RDW-SD 52.5 fL; WBC 7.38 10^3/uL (4.4-10.8)
[2023-11-01 19:10] LABS: Ferritin 139 ng/mL (26-388)
[2023-11-01 19:13] LABS: Hemoglobin A1C 6.5 % (<5.7)
== END 2023-11-01 16:45 | disposition home or self-care (01) ==
LOC: NCHCN 16:44
PROVIDERS: PCP Family Medicine; Visit Provider Family Medicine
DX: E11.9 Type 2 diabetes mellitus without complications (principal); D64.9 Anemia, unspecified
CPT/HCPCS: 85027; 82728; 83036

== ENCOUNTER 2024-04-16 03:13 | Outpatient (CLI) | payer MEDICARE, MEDICAID, SELFPAY ==
[2024-04-16 12:59] LABS: ALT 18 U/L (16-63); AST 23 U/L (15-37); Albumin 3.4 g/dL (3.4-5.0); Alkaline Phosphatase 65 U/L (46-116); Anion Gap 7.6 mmol/L (3-11); BUN 14 mg/dL (7-18); Bilirubin, Total 0.96 mg/dL (0.2-1.0); CO2 30.4 mmol/L (21.0-32.0); CREATININE 0.9 mg/dL (0.70-1.30); Calcium 9.4 mg/dL (8.5-10.1); Chloride 98 mmol/L (98-107); Estimated GFR 96.57 (mL/min/1.73m2); Glucose 190 mg/dL (74-106); Potassium 4.4 mmol/L (3.5-5.1); Sodium 136 mmol/L (136-145); Total Protein 7.3 g/dL (6.4-8.2)
[2024-04-16 13:03] LABS: Hemoglobin A1C 7.1 % (<5.7)
[2024-04-16 13:05] LABS: COMMENT (LAB VIEW ONLY) 35.66 mg/dL; PROTEIN 138.9 mg/dL; Prot/Crea Ur Ratio 3.89
== END 2024-04-16 03:14 | disposition home or self-care (01) ==
LOC: LOS 03:14
PROVIDERS: PCP Family Medicine; Visit Provider Internal Medicine Endocrinology, Diabetes & Metabolism
DX: E11.65 Type 2 diabetes mellitus with hyperglycemia (principal)
CPT/HCPCS: 36415; 80053; 82565; 83036; 84156

== ENCOUNTER 2024-06-12 03:05 | Outpatient (CLI) | payer MEDICARE, MEDICAID, SELFPAY ==
[2024-06-12 13:58] LABS: Abs Immature Grans 0.03 10^3/uL (0.0-0.06); Absolute Basophil Count 0.06 10^3/uL (0.0-0.2); Absolute Eosinophil Count 0.23 10^3/uL (0.0-0.7); Absolute Lymphocyte Count 2.52 10^3/uL (1.2-3.4); Absolute Monocyte Count 0.77 10^3/uL (0.1-0.8); Absolute Neutrophil Count 4.85 10^3/uL (1.2-6.7); Basophils % 0.7 %; Eosinophils % 2.7 %; HCT 36.4 % (40.0-50.0); HGB 11.6 g/dL (13.5-17.5); Immature Grans % 0.4 %; Lymphocytes % 29.8 %; MCH 27.6 pg (27.0-33.0); MCHC 31.9 % (32.0-36.0); MCV 87 fL (80-95); MPV 10.2 fL (8.0-11.0); Monocytes % 9.1 %; Neutrophils % 57.3 %; Platelet Count 208 10^3/uL (130-400); RDW 15.4 % (11.8-14.1); RDW-SD 48.8 fL; WBC 8.46 10^3/uL (4.4-10.8)
[2024-06-12 14:55] LABS: Ferritin 85 ng/mL (26-388)
== END 2024-06-12 03:06 | disposition home or self-care (01) ==
LOC: LBO 03:05
PROVIDERS: PCP Student in an Organized Health Care Education/Training Program; Visit Provider Internal Medicine Hematology & Oncology
DX: D50.0 Iron deficiency anemia secondary to blood loss (chronic) (principal)
CPT/HCPCS: 36415; 82728; 85025

== ENCOUNTER 2024-07-03 16:17 | Outpatient (REF) | payer MEDICARE, MEDICAID, SELFPAY ==
[2024-07-03 19:41] LABS: Calculated LDL 43 mg/dL (<100); Cholesterol 112 mg/dL (<200); HDL Cholesterol 36 mg/dL (40-60); Triglyceride 166 mg/dL (<150)
[2024-07-04 18:46] LABS: PSA, Screening 0.1 ng/mL (<=4.5)
== END 2024-07-03 16:18 | disposition home or self-care (01) ==
LOC: NCHCN 16:17
PROVIDERS: PCP Student in an Organized Health Care Education/Training Program; Visit Provider Student in an Organized Health Care Education/Training Program
DX: Z12.5 Encounter for screening for malignant neoplasm of prostate (principal)
CPT/HCPCS: 80061; 84153

== ENCOUNTER 2024-08-18 11:57 | Outpatient (CLI) | payer MEDICARE, MEDICAID, SELFPAY ==
[2024-08-18 09:45] LABS: Anion Gap 5.3 mmol/L (3-11); BUN 11 mg/dL (7-18); CO2 31.7 mmol/L (21.0-32.0); Calcium 9.1 mg/dL (8.5-10.1); Chloride 101 mmol/L (98-107); Glucose 173 mg/dL (74-106); Potassium 4.3 mmol/L (3.5-5.1); Sodium 138 mmol/L (136-145)
[2024-08-20 11:38] LABS: Fructosamine 220 mcmol/L (200 - 285)
[2024-08-21 12:41] LABS: C-Peptide 4.2 ng/mL (1.1 - 4.4)
== END 2024-08-18 11:58 | disposition home or self-care (01) ==
LOC: LBO 11:59
PROVIDERS: PCP Student in an Organized Health Care Education/Training Program; Visit Provider Internal Medicine Endocrinology, Diabetes & Metabolism
DX: E11.65 Type 2 diabetes mellitus with hyperglycemia (principal); E66.01 Morbid (severe) obesity due to excess calories
CPT/HCPCS: 36415; 80048; 82985; 83036; 84443; 84681

== ENCOUNTER 2024-09-24 04:07 | Outpatient (CLI) | payer MEDICARE, MEDICAID, SELFPAY ==
[2024-09-24 13:30] LABS: Abs Immature Grans 0.04 10^3/uL (0.0-0.06); Absolute Basophil Count 0.03 10^3/uL (0.0-0.2); Absolute Eosinophil Count 0.18 10^3/uL (0.0-0.7); Absolute Lymphocyte Count 2.07 10^3/uL (1.2-3.4); Absolute Monocyte Count 0.56 10^3/uL (0.1-0.8); Absolute Neutrophil Count 4.97 10^3/uL (1.2-6.7); Basophils % 0.4 %; Eosinophils % 2.3 %; HCT 37.1 % (40.0-50.0); HGB 11.5 g/dL (13.5-17.5); Immature Grans % 0.5 %; Lymphocytes % 26.4 %; MCH 27.4 pg (27.0-33.0); MCV 89 fL (80-95); MPV 10.6 fL (8.0-11.0); Monocytes % 7.1 %; Neutrophils % 63.3 %; Platelet Count 192 10^3/uL (130-400); RBC 4.19 10^6/uL (4.36-5.78); RDW 14.7 % (11.8-14.1); RDW-SD 47.6 fL; WBC 7.85 10^3/uL (4.4-10.8)
[2024-09-24 13:56] LABS: Ferritin 67 ng/mL (26-388)
== END 2024-09-24 04:08 | disposition home or self-care (01) ==
LOC: LBO 04:07
PROVIDERS: PCP Student in an Organized Health Care Education/Training Program; Visit Provider Internal Medicine Hematology & Oncology
DX: D50.0 Iron deficiency anemia secondary to blood loss (chronic) (principal)
CPT/HCPCS: 36415; 82728; 85025

== ENCOUNTER 2024-12-03 01:55 | Outpatient (CLI) | payer MEDICARE, MEDICAID, SELFPAY ==
[2024-12-03 09:06] LABS: Abs Immature Grans 0.06 10^3/uL (0.0-0.06); Absolute Basophil Count 0.04 10^3/uL (0.0-0.2); Absolute Eosinophil Count 0.23 10^3/uL (0.0-0.7); Absolute Lymphocyte Count 1.99 10^3/uL (1.2-3.4); Absolute Monocyte Count 0.55 10^3/uL (0.1-0.8); Absolute Neutrophil Count 4.04 10^3/uL (1.2-6.7); Basophils % 0.6 %; Eosinophils % 3.3 %; HCT 34.4 % (40.0-50.0); Immature Grans % 0.9 %; Lymphocytes % 28.8 %; MCH 27.5 pg (27.0-33.0); MCV 86 fL (80-95); MPV 10.2 fL (8.0-11.0); Neutrophils % 58.4 %; Platelet Count 184 10^3/uL (130-400); RDW 15.2 % (11.8-14.1); RDW-SD 47.9 fL; WBC 6.91 10^3/uL (4.4-10.8)
[2024-12-03 10:11] LABS: Ferritin 75 ng/mL (26-388)
== END 2024-12-03 01:56 | disposition home or self-care (01) ==
PROVIDERS: PCP Student in an Organized Health Care Education/Training Program; Visit Provider Internal Medicine Hematology & Oncology
DX: D50.0 Iron deficiency anemia secondary to blood loss (chronic) (principal)
CPT/HCPCS: 36415; 82728; 85025

== ENCOUNTER 2025-02-10 11:31 | Emergency (ER) | payer MEDICARE, MEDICAID, SELFPAY ==
[2025-02-10 11:35] VITALS: BP 130/58; PULSE 82; RESP 18; O2SAT 96
--- NOTE | 2025-02-10 11:45 | DI.RAD_ITS ---
Exam(s) XR CHEST 2V PA LATERAL EXAM: XR CHEST 2V PA LATERAL CLINICAL HISTORY: cough TECHNIQUE: 2D digital imaging was performed of the chest. Three images were obtained. PA and lateral views were obtained. COMPARISON: No exams were available for comparison FINDINGS: MEDIASTINUM: Normal. HEART: Normal. PULMONARY VASCULATURE: Normal. LUNGS: Clear. PLEURAL SPACE: No pleural effusion or pneumothorax. BONE:Within normal limits for the patient's age. OTHER FINDINGS:Normal. IMPRESSION: No acute pulmonary findings. DATA REPOSITORY: RADIATION DOSE DELIVERED:
--- NOTE | 2025-02-10 11:49 | W.ED.GENAD ---
Discharge Plan Disposition Patient Disposition: Eloped Condition: Stable Discharge Details Clinical Impression: Upper respiratory infection, Back pain Primary Care Provider: Scott Marin ED Provider: Kostas Whitaker Home Meds and New Rx's Prescriptions: No Action metformin 500 MG tablet 1,000 mg PO BID Humulin R U-500 (Conc) Insulin 500 UNIT/1 ML solution 300 unit SQ . BEFORE BREAKFAST simvastatin 40 MG tablet 40 mg PO HS lisinopril-hydrochlorothiazide 1 EACH tablet 1 tab-cap PO DAILY Oxygen EACH Qty: 2 bipap 1 device miglitol [Glyset] 100 MG tablet 100 mg PO TID labetalol 200 MG tablet 400 mg PO BID famotidine 40 MG tablet 40 mg PO DAILY Drysol Dab-O-Matic 60 ML solution 0 ml Topical BID Humulin R U-500 (Conc) Insulin 500 UNIT/ML solution 200 unit SQ HS Patient Comments: 10/02/13 uses a sliding scale MPrn ketoconazole 15 GM cream 0 gm Topical PRN PRN Oxygen 2 % .WITH BIPAP Humulin R U-500 (Conc) Insulin 500 UNIT/ML solution 190 unit SQ .BEFORE DINNER acetaminophen 325 mg Tablet 650 mg PO Q6H PRN ketoconazole 2 % Shampoo 1 applic TOPICAL Q2W PRN triamcinolone acetonide 0.5 % Cream 1 applic TOPICAL BID omeprazole 40 mg Capsule,Delayed Release(Dr/Ec) 40 mg PO BID docusate sodium [Doc-Q-Lace] 100 mg Capsule 200 mg PO DAILY nystatin 100,000 unit/gram Powder 1 applic TOPICAL TID psyllium husk [Metamucil] 0.52 gram Capsule 0.52 g PO DAILY multivit, iron, min. cmb. 5-FA 10-1 mg Tablet 1 tab PO DAILY liraglutide [Victoza 2-Jose] 0.6 mg/0.1 mL (18 mg/3 mL) Pen Injector 0.6 mg SUBCUT DAILY acetaminophen [Tylenol Extra Strength] 500 mg tablet 500 mg PO Q6H PRN (Reason: pain) Qty: 20 0RF HPI General Date/Time Provider Initiated Documentation: 02/10/25 11:38. HPI Narrative: 64 year-old male presents to ED today by EMS with a chief complaint of cough since Sunday- coughing up some phlegm, R eye discharge & L eye discomfort, and was laying on his bed getting his leg wraps changed by HomeHealth and had a pain that was in the middle of his back, with onset over the weekend. Quality described as mild straining type back pain, no radiation to shortness of breath, chest pain, nausea/vomiting, bowel/urinary changes, numbness to legs/arms. Severity is described as moderate. Palliating factors include nothing specific attempted. Provoking factors include nothing specific. Patient not anticoagulated. Related Data Home Medications ?Medication ?Instructions ?Recorded ?Confirmed Oxygen 2 % .WITH BIPAP 10/02/13 09/17/18 aluminum chloride 20 % topical 0 ml topical BID 10/02/13 02/10/25 solution (Drysol Dab-O-Matic) famotidine 40 mg tablet 40 mg PO DAILY 10/02/13 02/10/25 insulin regular hum U-500 conc 500 200 unit SQ HS 10/02/13 02/10/25 unit/mL subcutaneous soln (Humulin R U-500 (Concentrated) Insulin) ketoconazole 2 % topical cream 0 gm topical PRN PRN 10/02/13 02/10/25 labetalol 200 mg tablet 400 mg PO BID 10/02/13 02/10/25 miglitol 100 mg tablet (Glyset) 100 mg PO TID 10/02/13 02/10/25 Bipap 1 device 10/26/16 Oxygen l ##2 10/26/16 insulin regular hum U-500 conc 500 300 unit SQ . BEFORE BREAKFAST 10/26/16 02/10/25 unit/mL subcutaneous soln (Humulin R U-500 (Concentrated) Insulin) lisinopril 20 1 tab-cap PO DAILY 10/26/16 02/10/25 mg-hydrochlorothiazide 25 mg tablet metformin 500 mg tablet 1,000 mg PO BID 10/26/16 02/10/25 simvastatin 40 mg tablet 40 mg PO HS 10/26/16 02/10/25 insulin regular hum U-500 conc 500 190 unit SQ .BEFORE DINNER 11/06/16 02/10/25 unit/mL subcutaneous soln (Humulin R U-500 (Concentrated) Insulin) acetaminophen 325 mg tablet 650 mg PO Q6H PRN 09/17/18 02/10/25 acetaminophen 500 mg tablet 500 mg PO Q6H PRN pain #20 tabs 09/17/18 02/10/25 (Tylenol Extra Strength) docusate sodium 100 mg capsule 200 mg PO DAILY 09/17/18 02/10/25 (Doc-Q-Lace) ketoconazole 2 % shampoo 1 applic topical Q2W PRN 09/17/18 02/10/25 liraglutide 0.6 mg/0.1 mL (18 mg/3 0.6 mg subcut DAILY 09/17/18 02/10/25 mL) subcutaneous pen injector ([employer] 2-Jose) multivit, iron, min. comb. 1 tab PO DAILY 09/17/18 02/10/25 no.5-folic acid 10 mg-1 mg tablet nystatin 100,000 unit/gram topical 1 applic topical TID 09/17/18 02/10/25 powder omeprazole 40 mg capsule,delayed 40 mg PO BID 09/17/18 02/10/25 release psyllium husk 0.52 gram capsule 0.52 g PO DAILY 09/17/18 02/10/25 (Metamucil) triamcinolone acetonide 0.5 % 1 applic topical BID 09/17/18 02/10/25 topical cream Previous Rx's ?Medication ?Instructions ?Recorded acetaminophen 500 mg tablet 500 mg PO Q6H PRN pain #20 tabs 09/17/18 (Tylenol Extra Strength) Allergies Allergy/AdvReac Type Severity Reaction Status Date / Time goldenrods Allergy unknown Uncoded 10/02/13 16:14 General Stated Complaint: Nk/Back Pain JUVENAL: 3 Review of Systems All systems reviewed & are unremarkable except as noted in HPI and below Exam Narrative Exam Narrative: GENERAL APPEARANCE: Morbid obesity, non-toxic, awake and alert, atraumatic, no acute distress. SKIN: Warm, pink, dry, intact, without rashes/lesions/ulcerations. HEAD: Normocephalic, atraumatic, normal hair distribution for gender/age. EYES: Normal conjunctiva, no exudates on lids/lashes. ENT: Nares patent, no circumoral cyanosis, no facial swelling NECK: Supple, trachea midline, painless cervical ROM. LUNGS/CHEST: Lungs CTA bilaterally- no rhonchi/rales/wheezes diffusely, non-labored respirations, normal A/P diameter, symmetrical expansion, no chest wall deformity HEART (CV/PV): Regular rate and rhythm without murmur, no peripheral edema, no JVD. ABDOMEN: Soft, non-distended, no guarding. MSK: Normal ROM, no swelling/deformity to bilateral UEs or LEs, moving all extremities without weakness, no cyanosis, spine midline without tenderness, no significant lumbar or thoracic paraspinal muscle tenderness, normal curvature. NEURO: Mental Status AAOx4 - alert to person, place, time, events No facial droop, no forehead involvement. Motor: No focal weakness - strength 5/5 in bilateral UEs and LEs, proximal and distal, symmetric. Sensory: sensation intact to light touch globally. Gait NT. PSYCH: euthymic, cooperative, pleasant, appropriate speech Course Vital Signs Vital signs: Vital Signs Pulse 82 02/10/25 11:35 Respiratory Rate 18 02/10/25 11:35 Blood Pressure 130/58 L 02/10/25 11:35 Pulse Oximetry 96 02/10/25 11:35 Pulse 82 02/10/25 11:35 Respiratory Rate 18 02/10/25 11:35 Blood Pressure 130/58 L 02/10/25 11:35 Pulse Oximetry 96 02/10/25 11:35 Oxygen Delivery Method Room Air 02/10/25 11:35 Oxygen Flow Rate 0 02/10/25 11:35 Pain Level 10 02/10/25 11:35 Medical Decision Making This dictation utilizes [id number] dictation software and may contain unedited grammatical errors. 64 year-old male presents to ED today by EMS with a chief complaint of cough since Sunday- coughing up some phlegm, R eye discharge & L eye discomfort, and was laying on his bed getting his leg wraps changed by HomeHealth and had a pain that was in the middle of his back, with onset over the weekend. Quality described as mild straining type back pain, no radiation to shortness of breath, chest pain, nausea/vomiting, bowel/urinary changes, numbness to legs/arms. Severity is described as moderate. Palliating factors include nothing specific attempted. Provoking factors include nothing specific. Patients' medical history: T2DM, hypertension, anemia, lymphedema, morbid obesity, RENE, cervical radiculopathy, gastritis, history of GI bleeding, orthopnea. Family and social history: Lives independently, uses a walker to get around at baseline, eats poor diet. Pertinent exam findings / vital signs include lungs CTA, no respiratory distress, nonhypoxic, no midline vertebral tenderness/crepitus/step-offs, no significant lumbar or thoracic paraspinal muscle tenderness, scant tiny of crusted discharge OD lateral canthus. Differential / pathologies of concern include viral syndrome, PNA, conjunctivitis, musculoskeletal back pain. Diagnostic studies of: -CXR, Covid/Flu/RSV PCR. -Covid/Flu/RSV neg -CXR negative Interventions of: -None- patient eloped as results of PCR came back, he left without speaking to anyone. ED Course/Assessment/Plan: 64-year-old male presents with mild back pain and a cough over the weekend, his PCR swab is negative, his chest x-ray shows no pneumonia and his vitals are stable and he is not in any respiratory distress. He was laying on his bed getting his lymphedema dressings changed and noticed some back pain, this is likely in the setting of musculoskeletal back pain secondary to morbid obesity. Anteflexion of crusty material at the lateral canthus of his OD, not suspicious for any bacterial conjunctivitis at this time, I would not have performed any specific intervention beyond recommending Tylenol and ibuprofen following up with his outpatient provider but the patient eloped. Findings not consistent with hypoxic respiratory failure, trauma to back, bacterial conjunctivitis, pneumonia, respiratory distress. Disposition of upper respiratory infection, back pain. Patient verbalized understanding of the plan and return to ED criteria and engaged in shared decision making. Medical Records Medical records reviewed: Yes I reviewed the patient's medical records. Imaging Data Radiologic Study: Attestation: I personally reviewed and interpreted this imaging study as follows: Imaging: X-Ray Radiologist's impression: EXAM: XR CHEST 2V PA LATERAL CLINICAL HISTORY: cough TECHNIQUE: 2D digital imaging was performed of the chest. Three images were obtained. PA and lateral views were obtained. COMPARISON: No exams were available for comparison FINDINGS: MEDIASTINUM: Normal. HEART: Normal. PULMONARY VASCULATURE: Normal. LUNGS: Clear. PLEURAL SPACE: No pleural effusion or pneumothorax. BONE:Within normal limits for the patient's age. OTHER FINDINGS:Normal. IMPRESSION: No acute pulmonary findings. PFSH All Active Problems (Updated 02/10/25 @ 13:34 by FLORINA Fall) Back pain (Acute) Upper respiratory infection (Acute) Social History Smoking/Tobacco Use Status: Former Tobacco Use Smoking risk assessment performed?: Yes Drug use: Never Do you feel safe at home: Yes Do you feel safe in your relationship?: Yes
[2025-02-10 12:53] LABS: COVID-19 PCR Negative (Negative); Influenza A PCR Negative (Negative); Influenza B PCR Negative (Negative); RSV PCR Negative (Negative)
[2025-02-10 13:01] LABS: Source Nasopharynx
--- NOTE | 2025-02-10 14:06 | NUR.NOTE ---
Nursing Note: PT eloped from unit to front lobby, returned to ED 10 mins later for DC paper work. Paper work given and DC instructions given PT had not quesitons for the provider
== END 2025-02-10 13:34 | disposition left against medical advice (07) ==
PROVIDERS: Emergency Provider Physician Assistant; PCP Student in an Organized Health Care Education/Training Program
DX: J06.9 Acute upper respiratory infection, unspecified (principal); M54.9 Dorsalgia, unspecified
CPT/HCPCS: 99283; 99284; 87637; 71046

== ENCOUNTER 2025-05-07 04:18 | Outpatient (CLI) | payer MEDICARE, MEDICAID, SELFPAY ==
[2025-05-07 12:06] LABS: Hemoglobin A1C 7.5 % (<5.7)
[2025-05-07 12:33] LABS: Anion Gap 4.8 mmol/L (3-11); BUN 14 mg/dL (7-18); CO2 32.2 mmol/L (21.0-32.0); Calcium 9.3 mg/dL (8.5-10.1); Chloride 100 mmol/L (98-107); Estimated GFR 95.97 (mL/min/1.73m2); Glucose 178 mg/dL (74-106); Potassium 3.8 mmol/L (3.5-5.1); Sodium 137 mmol/L (136-145)
== END 2025-05-07 04:19 | disposition home or self-care (01) ==
PROVIDERS: PCP Student in an Organized Health Care Education/Training Program; Visit Provider Internal Medicine Endocrinology, Diabetes & Metabolism
DX: E11.65 Type 2 diabetes mellitus with hyperglycemia (principal)
CPT/HCPCS: 36415; 80048; 83036

== ENCOUNTER 2025-07-09 14:55 | Outpatient (REF) | payer MEDICARE, MEDICAID, SELFPAY ==
[2025-07-09 20:29] LABS: Microalb ug/mg Crea 453.7 ug/mg Cr
== END 2025-07-09 14:56 | disposition home or self-care (01) ==
LOC: NCHCN 14:55
PROVIDERS: PCP Student in an Organized Health Care Education/Training Program; Visit Provider Student in an Organized Health Care Education/Training Program
DX: E11.9 Type 2 diabetes mellitus without complications (principal); Z79.4 Long term (current) use of insulin
CPT/HCPCS: 82043; 82570